=== PATIENT | male | born 1990 | race Caucasian/White ===

== ENCOUNTER 2025-08-09 17:21 | Emergency (ER) | payer OTHER, SELFPAY ==
[~2025-08-09] VITALS: Ht 172.7 cm; Wt 94.9 kg
[2025-08-09 17:27] VITALS: TEMP 97.9
[2025-08-09 20:19] VITALS: BP 110/74; O2SAT 100
== END 2025-08-09 20:21 | disposition home or self-care (01) ==
LOC: M ED 17:21
DX: S89.92XA Unspecified injury of left lower leg, initial encounter (principal); G57.32 Lesion of lateral popliteal nerve, left lower limb; X58.XXXA Exposure to other specified factors, initial encounter; Y92.009 Unspecified place in unspecified non-institutional (private) residence as the place of occurrence of the external cause; Y93.9 Activity, unspecified; Y99.9 Unspecified external cause status